=== PATIENT | male | born 1970 | race Caucasian/White ===

== ENCOUNTER 2023-08-21 12:40 | Emergency (ER) | payer MEDICAID, SELFPAY ==
--- NOTE | ~2023-08-21 | CT_ITS ---
EXAMINATION: CTA chest PE abdomen pel DATE: 08/21/2023 16:02 INDICATION: Right upper quadrant abdominal pain. Pleuritic chest pain. Shortness of breath. TECHNIQUE: Computed tomography angiography (CTA) of the chest was performed with 100 mL Omnipaque-350 intravenous contrast timed to evaluate the pulmonary arteries. Coronal maximum intensity projection 3D-reconstructions were created by the technologist. Computed tomography (CT) of the abdomen and pelv is was performed with intravenous contrast. Automated exposure control and iterative reconstruction t echnique were employed. The dose-length product was 2343.59 mGy-cm. COMPARISON: CT abdomen and pelvis 02/06/2004 FINDINGS: CTA chest: The lungs demonstrate mild atelectasis. No pleural effusion. The heart size is normal. No pericardial effusion. There is no pulmonary embolus. There is bilateral gynecomastia. There is mild t horacic spondylosis. CT abdomen and pelvis: The liver and spleen are normal. The gallbladder is normal in size. The pancre as, adrenal glands, and kidneys are normal. There is a mildly enlarged right external iliac lymph nod e, likely reactive. There is no free intraperitoneal fluid. There is mild lumbar spondylosis. IMPRESSION: 1. No pulmonary embolus. Sensitivity is mildly decreased by motion artifact. 2. Mildly enlarged right external iliac lymph node, likely reactive. Reviewed, dictated and finalized at location A.
[2023-08-21 12:54] VITALS: BP 190/86; PULSE 110; RESP 24; TEMP 36.6; O2SAT 92
--- NOTE | 2023-08-21 14:14 | ED.ABDPAIN ---
HPI - Abdominal Pain General Chief Complaint: Abdominal Pain <MAURO Salmon Last Filed: 08/21/23 18:57> Stated Complaint: RIGHT FLANK PAIN <MAURO Salmon Last Filed: 08/21/23 18:57> Time Seen by Provider: 08/21/23 14:14 <MAURO Salmon Last Filed: 08/21/23 18:57> Focused HPI: Patient is a 52 y/o male who presents to the ED with c/o R flank pain. Patient reports having pain in his R upper abdomen, R flank region for the past 5 days. States pain initially began after wrestling with his son 5 days ago. Pain intermittently radiates around to R mid back. Worse with eating, movement, changing positions, taking deep breath. States he feels short of breath d/t the pain. Denies CP. Patient does report recent constipation. Took a laxative and had large BM with diarrhea last night. He has had some issues with constipation since starting Semaglutide 2 mos ago for weight loss. Still has a gallbladder. Denies N/V, fevers, rectal bleeding. GENERAL: Uncomfortable-appearing, morbidly obese with BMI of 65.2, and in mild acute distress d/t pain. HEAD: Normocephalic, atraumatic. CHEST: Clear to auscultation. ?No respiratory distress. HEART: Borderline tachycardic with regular rhythm.? ABD: TTP in R upper/lateral abdomen, extending along right lower rib cage/chest wall. No rebound. Normoactive BS. NEURO: ?Alert and oriented x3. Patient screened in triage and initial orders placed.? ?Additional care and disposition to be based upon?diagnostic testing and treatment. <MAURO Salmon Last Filed: 08/21/23 18:57> Source: patient <MAURO Salmon Filed: 08/21/23 18:57> Mode of arrival: ambulatory <MAURO Salmon Last Filed: 08/21/23 18:57> Limitations: no limitations <MAURO Salmon Filed: 08/21/23 18:57> History of Present Illness HPI narrative: Agree with HPI <Sarmad Azevedo MD - Last Filed: 08/21/23 18:22> Related Data Allergies/Adverse Reactions: Allergies Allergy/AdvReac Type Severity Reaction Status Date / Time codeine AdvReac Unknown NAUSEA Verified 08/21/23 12:44 meperidine AdvReac Unknown NAUSEA Verified 08/21/23 12:44 <Nanda John PA-C - Last Filed: 08/21/23 18:57> Review of Systems Review of Systems: All systems reviewed & are unremarkable except as noted in HPI and below <Sarmad Azevedo MD - Last Filed: 08/21/23 18:22> Constitutional: Constitutional: Reports no additional constitutional complaints <Sarmad Azevedo MD - Last Filed: 08/21/23 18:22> ENT: Reports system reviewed and no additional complaints, except as documented <Sarmad Azevedo MD - Last Filed: 08/21/23 18:22> Cardiovascular: Cardiovascular: Reports chest pain, Denies rapid heart rate and Denies radiating jaw, neck or arm pain <Sarmad Azevedo MD - Last Filed: 08/21/23 18:22> Respiratory: Respiratory: Denies chest congestion, Denies cough and Reports dyspnea <Sarmad Azevedo MD - Last Filed: 08/21/23 18:22> Comments: pain with deep breath <Sarmad Azevedo MD - Last Filed: 08/21/23 18:22> Gastrointestinal: Gastrointestinal: Reports no additional gastrointestinal complaints <Sarmad Azevedo MD - Last Filed: 08/21/23 18:22> Musculoskeletal: Musculoskeletal: Reports as per HPI <Sarmad Azevedo MD - Last Filed: 08/21/23 18:22> FOR[facility]LY [facility], [facility] Past Medical History Medical History: Medical History (Updated 08/21/23 @ 18:21 by Sarmad Azevedo MD) Morbid obesity Normal esophagogastroduodenoscopy (EGD) <Nanda John PA-C - Last Filed: 08/21/23 18:57> Surgical History Surgical History: Surgical History (Updated 08/21/23 @ 18:21 by Sarmad Azevedo MD) H/O wrist surgery <Nanda John PA-C - Last Filed: 08/21/23 18:57> Family History Family History: Family History (System 03/18/20 @ 09:25 by Maryse Fletcher) Father De
[2023-08-21 14:52] VITALS: BP 157/91; PULSE 97; RESP 20; O2SAT 93
[2023-08-21] MEDS: CYCLOBENZAPRINE HCL 5 MG TABLET PO (14:52)
[2023-08-21] MEDS: HYDROcodone/acetaminophen (*CRX) 5-325 MG TABLET 1 TAB PO (14:52)
--- NOTE | 2023-08-21 14:57 | PC.NURSE ---
Patient refusing IV and CTA at this time. Pt states he wants to tell a provider his symptoms again before having further testing.
[2023-08-21 15:37] LABS: Basophils Percent Auto 0.3 % (0.2-1.2); Eosinophils Absolute Auto 0.2 K/mm3 (0-0.3); Eosinophils Percent Auto 2.1 % (0-4.4); Hematocrit 49.3 % (42.0-52.0); Hemoglobin 15.7 g/dL (14.0-18.0); Immature Granulocyte Absolute 0.03 K/mm3 (0.00-0.031); Immature Granulocyte Percent A 0.3 % (0-0.5); Lymphocytes Percent Auto 10.4 % (18.3-44.2); Mean Corpuscular HGB Conc 31.8 g/dl (32-36); Mean Corpuscular Hemoglobin 30.4 pg (26-34); Mean Corpuscular Volume 95.5 fl (80-100); Mean Platelet Volume 9.7 fl (7.4-10.4); Monocytes Absolute Auto 1.2 K/mm3 (0.1-0.6); Monocytes Percent Auto 9.9 % (2.6-8.5); Neutrophils Absolute Auto 8.9 K/mm3 (1.3-6.7); Platelet Count Result 202 k/mm3 (150-375); Red Blood Count 5.16 M/mm3 (4.6-6.20); Red Cell Distribution Width 13.7 % (11.5-14.5); White Blood Count 11.6 K/mm3 (4.5-10.0)
[2023-08-21 15:43] LABS: Estimated CRCL calculation 201 ml/min; Estimated Glomerular Filt Rate > 60
[2023-08-21 15:54] LABS: Alanine Aminotransferase 16 U/L (6-50); Albumin Level 4.2 g/dL (3.5-5.1); Alkaline Phosphatase 77 U/L (38-126); Anion Gap 4 mmol/L (4-12); Aspartate Amino Transferase 21 U/L (17-59); Blood Urea Nitrogen 12 mg/dL (9-20); Calcium 8.9 mg/dL (8.4-10.2); Carbon Dioxide 32 mmol/L (22-30); Chloride 99 mmol/L (98-107); Estimated CRCL calculation 201 ml/min; Estimated Glomerular Filt Rate > 60; Glucose 103 mg/dL (65-110); Lipase 31 U/L (23-300); Potassium 4.1 mmol/L (3.4-5.0); Sodium 135 mmol/L (137-145)
[2023-08-21] MEDS: fentaNYL CITRATE INJ (*CRX) 100 MCG/2 ML VIAL 50 MCG IV PUSH (18:10)
[2023-08-21 18:35] VITALS: BP 156/84; PULSE 90; RESP 20; O2SAT 95
== END 2023-08-21 18:36 | disposition home or self-care (01) ==
PROVIDERS: Physician Assistant; Emergency Provider Emergency Medicine; PCP Family Medicine
DX: S29.011A Strain of muscle and tendon of front wall of thorax, initial encounter (principal); E66.01 Morbid (severe) obesity due to excess calories; Z68.44 Body mass index [BMI] 60.0-69.9, adult; R59.9 Enlarged lymph nodes, unspecified; Z79.85 Long-term (current) use of injectable non-insulin antidiabetic drugs; X58.XXXA Exposure to other specified factors, initial encounter; Y93.83 Activity, rough housing and horseplay
CPT/HCPCS: 36415; 71275; 74177; 80053; 83690; 85025; 96374; 99284; A9270; J3010; Q9967